=== PATIENT | female | born 1945 | race Hispanic/Latino ===

== ENCOUNTER 2018-03-04 11:39 | Emergency (ER) | payer MEDICARE ==
[~2018-03-04 11:39] MED LIST: ASPI-1005 PO; CALC667T5 PO; CARV12.511 PO; CARV6.25 PO; CLOP75TA32 PO; GABA-529 PO; HUMALOG SQ; INSU100I13 SQ; LOSA100T29 PO; NITR0.4T SL; OMEP20CA10 PO; RANO500T2 PO; SERT100T12 PO; SEVE800T7 PO; isosorbide PO
[2018-03-04] MEDS ORDERED: SODIUM CHLORIDE 0.9% 500ML 500 ML IV ONE (12:14)
[2018-03-04] MEDS ORDERED: ONDANSETRON HCL MDV 20ML 2 MG/ML VIAL ONE (12:14)
[2018-03-04 12:27] LABS: BASOPHILS % (AUTO) 0.6 % (0.0-5.0); HEMATOCRIT 39.2 % (36-48); LYMPHOCYTES % (AUTO) 12.4 % (21.0-51.0); MEAN CORPUSCULAR HEMOGLOBIN 32.8 pg (27.0-33.0); MEAN CORPUSCULAR HGB CONC 33.1 g/dL (32.0-36.0); MONOCYTES % (AUTO) 6.8 % (3.0-13.0); NEUTROPHILS % (AUTO) 79.2 % (40.0-77.0); NUCLEATED RED BLOOD CELLS 0.1 % (0.0-0.19); PLATELET COUNT (AUTO) 198 K/uL (130-400); RED BLOOD CELL COUNT(AUTO) 3.96 MIL/uL (4.00-5.50); RED CELL DISTRIBUTION WIDTH 14.5 % (11.0-15.5); WHITE BLOOD COUNT (AUTO) 8.8 K/uL (4.8-10.8)
[2018-03-04 12:36] LABS: CREATININE 2.8 mg/dL (0.5-1.5); POTASSIUM 3.3 mmol/L (3.5-5.1)
[2018-03-04 12:42] LABS: ALBUMIN 3.4 g/dL (3.5-5.0); BILIRUBIN,TOTAL 0.5 mg/dL (0.2-1.0)
== END 2018-03-04 15:00 | disposition home or self-care (01) ==
LOC: EDH 11:39
DX: R11.2 Nausea with vomiting, unspecified (principal); R19.7 Diarrhea, unspecified; R10.84 Generalized abdominal pain; I13.2 Hypertensive heart and chronic kidney disease with heart failure and with stage 5 chronic kidney disease, or end stage renal disease; E11.22 Type 2 diabetes mellitus with diabetic chronic kidney disease; N18.6 End stage renal disease; I50.9 Heart failure, unspecified; J45.909 Unspecified asthma, uncomplicated; Z99.2 Dependence on renal dialysis; Z88.1 Allergy status to other antibiotic agents; Z88.8 Allergy status to other drugs, medicaments and biological substances
CPT/HCPCS: 36415; 74176; 80053; 83690; 85025; 96374; 99285; J7040

== ENCOUNTER 2018-03-20 12:34 | Inpatient (IN) | payer MEDICARE ==
[~2018-03-20] VITALS: Ht 149.9 cm; Wt 59.7 kg
[2018-03-20 15:26] LABS: BASOPHILS % (AUTO) 0.5 % (0.0-5.0); EOSINOPHILS % (AUTO) 0.4 % (0.0-8.0); LYMPHOCYTES % (AUTO) 10.5 % (21.0-51.0); MEAN CORPUSCULAR HEMOGLOBIN 33.1 pg (27.0-33.0); MEAN CORPUSCULAR HGB CONC 33.4 g/dL (32.0-36.0); MEAN CORPUSCULAR VOLUME 99.1 fL (79-99); MONOCYTES % (AUTO) 9.6 % (3.0-13.0); PLATELET COUNT (AUTO) 221 K/uL (130-400); RED BLOOD CELL COUNT(AUTO) 3.33 MIL/uL (4.00-5.50); RED CELL DISTRIBUTION WIDTH 13.7 % (11.0-15.5); WHITE BLOOD COUNT (AUTO) 8.5 K/uL (4.8-10.8)
[2018-03-20 15:39] LABS: PARTIAL THROMBOPLASTIN TIME 33.3 SEC (26.3-35.5); PROTHROMBIN TIME 10.5 SEC (9.6-11.6)
[2018-03-20 19:22] LABS: CREATININE 2.6 mg/dL (0.5-1.5)
[2018-03-20 19:28] LABS: ALBUMIN 2.6 g/dL (3.5-5.0); BILIRUBIN,TOTAL 0.4 mg/dL (0.2-1.0); TOTAL PROTEIN, SERUM 7.6 g/dL (6.0-8.3)
[2018-03-20 20:15] VITALS: BP 168/57
[2018-03-20] MEDS ORDERED: AZITHROMYCIN 500MG+NS 250ML 250 ML IV SCH (21:00)
[2018-03-20] MEDS ORDERED: CEFTRIAXONE 1GM/D5W 50ML 50 ML IV SCH (21:00)
[2018-03-20] MEDS ORDERED: DIPHENHYDRAMINE HCL 25 MG CAPSULE PO SCH (21:15)
[2018-03-20] MEDS ORDERED: PEG 3350/NA SULF,BICARB,CL/KCL 4000 ML SOLN PO SCH (21:30)
[2018-03-20 21:44] LABS: HEMATOCRIT 32.6 % (36-48)
[2018-03-20] MEDS: CEFTRIAXONE SODIUM 1 GM IVP SCH (21:51)
[2018-03-20] MEDS: AZITHROMYCIN 500MG+NS 250ML 250 ML IV SCH (21:51)
[2018-03-20] MEDS: IPRATROPIUM/ALBUTEROL SULFATE 3 ML SOLUTION IH SCH (23:47)
[2018-03-21] VITALS (24 sets, daily range): BP systolic 121–188; BP diastolic 28–91
[2018-03-21 04:41] LABS: BASOPHILS % (AUTO) 0.4 % (0.0-5.0); EOSINOPHILS % (AUTO) 0.8 % (0.0-8.0); HEMATOCRIT 31.3 % (36-48); LYMPHOCYTES % (AUTO) 9.9 % (21.0-51.0); MEAN CORPUSCULAR HEMOGLOBIN 32.8 pg (27.0-33.0); MEAN CORPUSCULAR HGB CONC 32.7 g/dL (32.0-36.0); MEAN CORPUSCULAR VOLUME 100.2 fL (79-99); MONOCYTES % (AUTO) 11.7 % (3.0-13.0); NEUTROPHILS % (AUTO) 77.2 % (40.0-77.0); PLATELET COUNT (AUTO) 225 K/uL (130-400); RED BLOOD CELL COUNT(AUTO) 3.12 MIL/uL (4.00-5.50); RED CELL DISTRIBUTION WIDTH 13.4 % (11.0-15.5); WHITE BLOOD COUNT (AUTO) 9.3 K/uL (4.8-10.8)
[2018-03-21 05:19] LABS: ALBUMIN 2.5 g/dL (3.5-5.0); BILIRUBIN,TOTAL 0.4 mg/dL (0.2-1.0); CREATININE 3.6 mg/dL (0.5-1.5); POTASSIUM 3.8 mmol/L (3.5-5.1); TOTAL PROTEIN, SERUM 7.4 g/dL (6.0-8.3)
[2018-03-21] MEDS: IPRATROPIUM/ALBUTEROL SULFATE 3 ML SOLUTION IH SCH ×3 (06:51→18:56)
[2018-03-21] MEDS: PANTOPRAZOLE 40 MG/VIAL IVP SCH (09:39)
[2018-03-21] MEDS ORDERED: LIDOCAINE HCL 2% 20ML ONE (13:41)
[2018-03-21] MEDS ORDERED: PROPOFOL 10 MG/ML 20ML VIAL IV ONE (13:41)
[2018-03-21] MEDS ORDERED: PANT40TA25 PO (18:44)
[2018-03-21] MEDS ORDERED: TRAM50TA4 PO (18:44)
[2018-03-21] MEDS ORDERED: LOSA100T29 PO (18:44)
[2018-03-21] MEDS ORDERED: CARV12.511 PO (18:44)
[2018-03-21] MEDS ORDERED: NITR50 PO (18:44)
[2018-03-21] MEDS ORDERED: GABA-529 PO (18:44)
[2018-03-21] MEDS ORDERED: SEVE800T7 PO (18:44)
[2018-03-21] MEDS ORDERED: PHOSLOC PO (18:44)
[2018-03-21] MEDS ORDERED: ISOS30TA6 PO (18:44)
[2018-03-21] MEDS ORDERED: SERT100T12 PO (18:44)
[2018-03-21] MEDS ORDERED: PRAV40TA PO (18:44)
[2018-03-21] MEDS: CEFTRIAXONE SODIUM 1 GM IVP SCH (20:39)
[2018-03-21] MEDS: AZITHROMYCIN 500MG+NS 250ML 250 ML IV SCH (20:52)
[2018-03-21] MEDS ORDERED: ACETAMINOPHEN EXTRA STRENGTH 500 MG TABLET PO PRN ×2 (21:30)
[2018-03-21] MEDS: DIPHENHYDRAMINE HCL 25 MG CAPSULE PO PRN (21:51)
[2018-03-22] VITALS (7 sets, daily range): BP systolic 136–199; BP diastolic 47–71
[2018-03-22] MEDS: IPRATROPIUM/ALBUTEROL SULFATE 3 ML SOLUTION IH SCH ×4 (00:32→18:46)
[2018-03-22 04:30] LABS: BASOPHILS % (AUTO) 0.6 % (0.0-5.0); EOSINOPHILS % (AUTO) 2.7 % (0.0-8.0); HEMATOCRIT 27.3 % (36-48); LYMPHOCYTES % (AUTO) 19.1 % (21.0-51.0); MEAN CORPUSCULAR HEMOGLOBIN 35.1 pg (27.0-33.0); MEAN CORPUSCULAR HGB CONC 35.3 g/dL (32.0-36.0); MEAN CORPUSCULAR VOLUME 99.4 fL (79-99); MONOCYTES % (AUTO) 12.6 % (3.0-13.0); PLATELET COUNT (AUTO) 210 K/uL (130-400); RED BLOOD CELL COUNT(AUTO) 2.74 MIL/uL (4.00-5.50); RED CELL DISTRIBUTION WIDTH 13.5 % (11.0-15.5); WHITE BLOOD COUNT (AUTO) 6.3 K/uL (4.8-10.8)
[2018-03-22 05:03] LABS: POTASSIUM 3.7 mmol/L (3.5-5.1)
[2018-03-22] MEDS: INSULIN HUMULIN R 100 UNIT/ML 3ML SQ SCH ×4 (05:50→22:52)
[2018-03-22] MEDS ORDERED: 0.9% SODIUM CHLORIDE 250 ML IV BAG IV PRN (10:30)
[2018-03-22] MEDS ORDERED: SODIUM CHLORIDE 0.9% 1000ML 1,000 ML IV PRN (10:30)
[2018-03-22] MEDS ORDERED: HEPARIN SODIUM 5000UNIT/ML 1ML VIAL IJ PRN (10:30)
[2018-03-22] MEDS ORDERED: ALBUMIN (HUMAN) 25% 100 ML IV PRN (10:30)
[2018-03-22] MEDS ORDERED: TRAMADOL HCL 50 MG TABLET PO PRN (11:30)
[2018-03-22] MEDS: CALCIUM ACETATE 667 MG CAPSULE PO SCH ×2 (13:45→17:00)
[2018-03-22] MEDS ORDERED: EPOETIN ALFA 20,000 UNIT/ML VIAL SQ SCH (15:00)
[2018-03-22] MEDS: SEVELAMER HCL 800 MG TABLET PO SCH (17:00)
[2018-03-22] MEDS: PANTOPRAZOLE 40 MG/VIAL IVP SCH (18:39)
[2018-03-22] MEDS: DIPHENHYDRAMINE HCL 25 MG CAPSULE PO PRN (18:48)
[2018-03-22] MEDS: AZITHROMYCIN 500MG+NS 250ML 250 ML IV SCH (20:42)
[2018-03-22] MEDS: CEFTRIAXONE SODIUM 1 GM IVP SCH (20:42)
[2018-03-22] MEDS ORDERED: LOSARTAN 100 MG TABLET PO SCH (21:00)
[2018-03-22] MEDS ORDERED: ATORVASTATIN CALCIUM 10 MG TABLET PO SCH (21:00)
[2018-03-22] MEDS: CARVEDILOL 12.5 MG TABLET PO SCH (23:00)
[2018-03-23] MEDS: IPRATROPIUM/ALBUTEROL SULFATE 3 ML SOLUTION IH SCH ×3 (00:37→11:07)
[2018-03-23 03:45] VITALS: BP 181/60
[2018-03-23 06:00] LABS: BASOPHILS % (AUTO) 0.6 % (0.0-5.0); HEMATOCRIT 30.1 % (36-48); LYMPHOCYTES % (AUTO) 14.9 % (21.0-51.0); MEAN CORPUSCULAR HEMOGLOBIN 33.2 pg (27.0-33.0); MEAN CORPUSCULAR HGB CONC 33.2 g/dL (32.0-36.0); MONOCYTES % (AUTO) 11.6 % (3.0-13.0); NEUTROPHILS % (AUTO) 69.9 % (40.0-77.0); PLATELET COUNT (AUTO) 216 K/uL (130-400); RED BLOOD CELL COUNT(AUTO) 3.01 MIL/uL (4.00-5.50); RED CELL DISTRIBUTION WIDTH 13.2 % (11.0-15.5); WHITE BLOOD COUNT (AUTO) 5.9 K/uL (4.8-10.8)
[2018-03-23 06:14] LABS: CREATININE 3.6 mg/dL (0.5-1.5); POTASSIUM 3.8 mmol/L (3.5-5.1)
[2018-03-23] MEDS: INSULIN HUMULIN R 100 UNIT/ML 3ML SQ SCH (06:51)
[2018-03-23] MEDS: SEVELAMER HCL 800 MG TABLET PO SCH (06:52)
[2018-03-23] MEDS: CALCIUM ACETATE 667 MG CAPSULE PO SCH (06:52)
[2018-03-23] MEDS ORDERED: SERTRALINE HCL 50 MG TABLET PO SCH (09:00)
[2018-03-23] MEDS ORDERED: GABAPENTIN 100 MG CAPSULE PO SCH (09:00)
[2018-03-23] MEDS ORDERED: ISOSORBIDE MONO 30MG TAB SR PO SCH (09:00)
[2018-03-23 09:29] VITALS: BP 190/67
[2018-03-23] MEDS: PANTOPRAZOLE 40 MG/VIAL IVP SCH (09:29)
[2018-03-23] MEDS: CARVEDILOL 12.5 MG TABLET PO SCH (09:29)
[2018-03-23] MEDS: DIPHENHYDRAMINE HCL 25 MG CAPSULE PO PRN (09:43)
== END 2018-03-23 13:45 | disposition home or self-care (01) | DRG 377 ==
LOC: EDH 12:34 → EDHIP 16:45 → 3DH 20:00
PROVIDERS: ADMIT Internal Medicine Nephrology; ATTEND Internal Medicine Nephrology
PROC: 0DJD8ZZ Inspection of Lower Intestinal Tract, Via Natural or Artificial Opening Endoscopic (ICD-10-PCS; principal; 2018-03-21)
PROC: 5A1D70Z Performance of Urinary Filtration, Intermittent, Less than 6 Hours Per Day (ICD-10-PCS; 2018-03-22)
DX: K57.33 Diverticulitis of large intestine without perforation or abscess with bleeding (principal); J18.9 Pneumonia, unspecified organism; E11.22 Type 2 diabetes mellitus with diabetic chronic kidney disease; I12.0 Hypertensive chronic kidney disease with stage 5 chronic kidney disease or end stage renal disease; N18.6 End stage renal disease; D64.9 Anemia, unspecified; J44.0 Chronic obstructive pulmonary disease with (acute) lower respiratory infection; K92.1 Melena; Z99.2 Dependence on renal dialysis; Z28.21 Immunization not carried out because of patient refusal; Z88.8 Allergy status to other drugs, medicaments and biological substances
CPT/HCPCS: 36415; 74176; 80048; 80053; 82270; 82550; 82948; 84484; 85014; 85018; 85025; 85610; 85730; 86850; 86870; 86900; 86901; 86905; 86922; 87071; 87077; 87186; 87205; 87507; 90935; 93005; 94640; 94660; 94664; 99291; A4218; C9113; J0456; J0696; J0885; J1815; J2704; J3490; Q0163